=== PATIENT | female | born 1980 | race Caucasian/White ===

== ENCOUNTER 2016-12-10 04:11 | Emergency (ER) | payer SELFPAY ==
[2016-12-10] MEDS ORDERED: IPRATROPIUM/ALBUTEROL SULFATE 3 ML AMPUL.NEB NEB ONE (04:58)
--- NOTE | 2016-12-10 05:00 | ED Physician Documentation ---
General Adult - HISTORIAN Historian: patient - HPI Stated Complaint: cough, sore throat, difficulty breathing Chief Complaint: General Adult Additional Information: Cough, fever 10 102+, body aches, since 12/08. No flu shot this year. Temp 99.7 on arrival in ER. Pulse ox 90 and higher on ambient air. - ROS CONST: fever. denies: sweating CVS/RESP: cough - PAST HX Past History: asthma Allergies/Adverse Reactions: Allergies Allergy/AdvReac Type Severity Reaction Status Date / Time codeine [Codeine] Allergy Verified 12/10/16 04:21 diphenhydramine HCl Allergy Verified 12/10/16 04:21 [From Benadryl] Home Medications: Ambulatory Orders Medication Instructions Recorded Ferrous Gluconate [Iron] 1 tab PO D 12/10/16 Multivitamin [Tab-A-Serg] 1 tab PO D 12/10/16 - SOCIAL HX Smoking History: non-smoker - FAMILY HX Family History: No - VITAL SIGNS Vital Signs: Vital Signs Temp Pulse Resp BP Pulse Ox 99.7 F H 89 19 125/83 94 12/10/16 04:12 12/10/16 04:12 12/10/16 04:12 12/10/16 04:12 12/10/16 04:12 - REVIEWED ASSESSMENTS Nursing Assessment Reviewed: Yes Vitals Reviewed: Yes Progress - Progress Progress: Chest - two views Clinical history: Cough and fever. History of asthma. Findings: Examination of the chest in PA and lateral views with comparison to examination of 01/11/2014 demonstrates the lungs to be clear. Cardiovascular and mediastinal silhouettes are stable. Monitor leads superimpose the chest. Impression: 1. No active disease. Electronically signed on Dec 10, 2016 5:36:30 AM ORGANIC SECTION TECHNICAL LEAD by: Eugene Lay ED Results Lab/Radiology - Orders Orders: ED Orders Category Date Time Status GRP A STREP SCREEN Stat Lab 12/10/16 Ordered INFLUENZA A&B Stat Lab 12/10/16 Uncollected Ipratropium/Albuterol Sulfate [Duoneb] Med 12/10/16 04:58 Once 3 ml NEB NOW ONE General Adult Physical Exam - PHYSICAL EXAM GENERAL APPEARANCE: moderate distress EENT: eye inspection normal, ENT inspection normal, pharynx normal (Mallampati 4 ), MISAEL, TM's nml NECK: normal inspection, supple RESPIRATORY: no resp distress, breath sounds normal (but decreased throughout) CVS: reg rate & rhythm, heart sounds normal RECTAL: deferred BACK: normal inspection SKIN: warm/dry, normal color EXTREMITIES: no evidence of injury NEURO: CN's nml as tested, motor nml, sensation nml Discharge Clincal Impression: Influenza A Additional Instructions: Drink plenty of water. Treat any fever of 101 or higher with Tylenol or ibuprofen. Home Medications: Ambulatory Orders Ferrous Gluconate [Iron] 1 tab PO D 12/10/16 Multivitamin [Tab-A-Serg] 1 tab PO D 12/10/16 Condition: Fair Disposition: 01 HOME, SELF-CARE Decision to Admit: NO Decision Time: 06:11
[2016-12-10] MEDS ORDERED: ALBUTEROL SULFATE 2.5 MG/3 ML AMPUL.NEB NEB ONE ×3 (05:43→06:06)
--- NOTE | 2016-12-10 05:51 | Diagnostic Imaging Report ---
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 ~History of asthma. Findings: ~Examination of the chest in PA and lateral views with comparison to examination of 01/11/2014 demonstrates the lungs to be clear. ~Cardiovascular and mediastinal silhouettes are stable. ~Monitor leads superimpose the chest. Impression: 1. ~No active disease. ~ Electronically signed on Dec 10, 2016 5:36:30 AM BULK PLANT OPERATOR by: Eugene WESTBROOK
[2016-12-10 06:25] VITALS: BP 121/79
== END 2016-12-10 06:21 | disposition home or self-care (01) ==
LOC: ED 04:11
DX: J11.1 Influenza due to unidentified influenza virus with other respiratory manifestations (principal)
CPT/HCPCS: 71020; 87070; 87400; 87880; 94640; 99282; 99283

== ENCOUNTER 2018-01-29 07:59 | Outpatient (CLI) | payer OTHER ==
[2018-01-29 08:33] LABS: BASOPHILS % 0.3 (0.0-1.5); MEAN CORPUSCULAR HEMOGLOBIN 29.3 pg (28.0-34.0); MEAN CORPUSCULAR VOLUME 88.9 fl (80.0-100.0); MONOCYTES % 3.7 % (0.0-11.0); NEUTROPHILS # 6.5 # k/uL (1.4-7.7)
[2018-01-29 08:56] LABS: eGFR (African) > 60; eGFR (Non-African) > 60
[2018-01-29 20:11] LABS: IRON SERUM 57 ug/dL (37-145)
== END 2018-01-29 08:00 ==
LOC: LAB 07:59
PROVIDERS: ATTEND Physician Assistant
DX: E55.9 Vitamin D deficiency, unspecified (principal); Z86.39 Personal history of other endocrine, nutritional and metabolic disease; R63.5 Abnormal weight gain; R53.83 Other fatigue
CPT/HCPCS: 36415; 80053; 82306; 83540; 84443; 85025

== ENCOUNTER 2019-05-28 15:00 | Emergency (ER) | payer OTHER ==
--- NOTE | 2019-05-28 15:27 | ED Physician Documentation ---
Flank Pain - HISTORIAN Historian: patient - HPI Stated Complaint: right flank pain Chief Complaint: Flank Pain Additional Information: Patient presents to ED with a 3 week history of intermittent right flank pain, worsening today. Denies fever, chills, nausea or vomiting. Currently on menstral cycle. Onset: days ago (21) Duration: waxing, waning Timing: worse Context: denies: out of country travel, bad food Severity: moderate Quality: pain, cramping, sharp Associated Symptoms: denies: fever, chills, nausea, vomiting, diarrhea Exacerbated by: nothing Relieved by: upright position - ROS CONST: no problems GI/: denies: constipation, problems urinating CVS/RESP: denies: shortness of breath, hurts to breath EYES/ENT: none MS/SKIN/LYMPH: none NEURO/PSYCH: denies: headache - SOCIAL HX Smoking History: non-smoker Alcohol Use: none Drug Use: none - FAMILY HX Family History: none - PAST HX Past History: none Ischemic Bowel Risk Factors: none Surgeries/Procedures: cholecystectomy Medications: see nurse note - VITAL SIGNS Vital Signs: Vital Signs Temp Pulse Resp BP Pulse Ox 121/79 12/10/16 06:22 - REVIEWED ASSESSMENTS Nursing Assessment Reviewed: Yes Vitals Reviewed: Yes ED Results Lab/Radiology - Lab Results Lab Results: UA - +2 blood, nitrite negative, leukocytes negative. - Radiology Radiology Impressions: Report Submission Date: May 28, 2019 4:16:00 PM CDT Patient Study Name: SHONA SILVERIO Date: May 28, 2019 3:46:39 PM CDT Modality Type: CT\SR Gender: F Description: CT ABD/PELVIS W/O : 84 Institution: [facility] Physician: BLAINE GARZA Examination: CT Abdomen/pelvis History: RT FLANK PAIN, PT STATES X3 WEEKS, WORSENING. Comparison exams: None available Technique: CT Abdomen/pelvis without IV protocol. Findings: Liver, spleen, adrenals and pancreas are without gross irregularity given exam technique. Surgical clips gallbladder fossa. No suspicious renal calcifications. Ureters are nondilated in their course through the abdomen and pelvis. No central calcifications. Bladder margin within normal limits. Pelvic phleboliths. Abdominal aorta without aneurysm or peripheral atherosclerotic disease. Cardiac silhouette is not enlarged. No pericardial effusion. Bowel unopacified limiting evaluation. No abnormal dilation. Stool within the large bowel limiting sensitivity. No mesenteric inflammatory changes or free fluid. Appendix not visualized. Osseous structures appropriate for age. Lung bases without infiltrate. No effusion. Impression: No acute upper abdominal organ inflammatory process. No abnormal bowel dilation or inflammation. No suspicious renal calcifications or abnormal ureteric dilation. No lung base consolidation or effusion. Electronically signed on May 28, 2019 4:16:00 PM CDT by: Filemon Regan - Orders Orders: ED Orders Category Date Time Status Place IV Lock 1T Care 05/28/19 15:26 Ordered CBC/PLATELET/DIFF Routine Lab 05/28/19 Ordered CMP Routine Lab 05/28/19 Ordered UA W/MICRO IF INDICATED Routine Lab 05/28/19 15:26 Ordered Abdominal Pain Physical Exam - Physical Exam General Appearance: no acute distress, alert EENT: MISAEL NECK: supple RESPIRATORY: no resp distress, chest non-tender, breath sounds normal CVS: reg rate & rhythm, heart sounds normal ABDOMEN: soft, tenderness (RUQ) BACK: normal inspection, CVA tenderness (R) SKIN: warm/dry, normal color EXTREMITIES: non-tender, no edema NEURO: oriented X3, motor nml, sensation nml, mood/affect nml Vital Signs: Vital Signs Temp Pulse Resp BP Pulse Ox 121/79 12/10/16 06:22 Discharge Clincal Impression: Acute right flank pain Referrals: Primary Doctor,No [Primary Care Provider] - 2 Days Additional Instructions: 1. Tylenol and/or Ibuprofen as needed for pain 2. Apply ice and/or heat to affected area as needed for pain 3. Stay active. Exercise will help 4. Follow up with PCP within 1 week 5. Return to ER for new or worsening symptoms Condition: Stable Disposition: 01 HOME, SELF-CARE Decision to Admit: NO Date of Decison to Admit: 05/28/19 Decision Time: 16:22
[2019-05-28 15:29] VITALS: BP 138/100
[2019-05-28 15:50] LABS: BASOPHILS % 0.4 % (0.0-1.5); NEUTROPHILS # 5.2 # k/uL (1.4-7.7)
[2019-05-28 16:07] LABS: eGFR (Non-African) > 60
[2019-05-28 19:42] LABS: APPEARANCE,URINE CLEAR (CLEAR); COLOR,URINE AMBER (YELLOW)
[2019-05-28 19:43] LABS: OCCULT BLOOD,URINE 2+ (NEGATIVE); UROBILINOGEN URINE 0.2 Eu (0.2-1.0)
--- NOTE | 2019-05-29 07:25 | Diagnostic Imaging Report ---
BLAINE GARZA [facility] [id number] [facility] [address] [place], [place]. [address] Report Submission Date: May 28, 2019 4:16:00 PM CDT Patient Study Name: SHONA SILVERIO Date: May 28, 2019 3:46:39 PM CDT Modality Type: CT\SR Gender: F Description: CT ABD/PELVIS W/O : 84 Institution: [facility] Physician: BLAINE GARZA Examination: CT Abdomen/pelvis History: RT FLANK PAIN, PT STATES X3 WEEKS, WORSENING. Comparison exams: None available Technique: CT Abdomen/pelvis without IV protocol. Findings: Liver, spleen, adrenals and pancreas are without gross irregularity given exam technique. Surgical clips gallbladder fossa. No suspicious renal calcifications. Ureters are nondilated in their course through the abdomen and pelvis. No central calcifications. Bladder margin within normal limits. Pelvic phleboliths. Abdominal aorta without aneurysm or peripheral atherosclerotic disease. Cardiac silhouette is not enlarged. No pericardial effusion. Bowel unopacified limiting evaluation. No abnormal dilation. Stool within the large bowel limiting sensitivity. No mesenteric inflammatory changes or free fluid. Appendix not visualized. Osseous structures appropriate for age. Lung bases without infiltrate. No effusion. Impression: No acute upper abdominal organ inflammatory process. No abnormal bowel dilation or inflammation. No suspicious renal calcifications or abnormal ureteric dilation. No lung base consolidation or effusion. Electronically signed on May 28, 2019 4:16:00 PM CDT by: Filemon WESTBROOK
== END 2019-05-28 16:28 | disposition home or self-care (01) ==
LOC: ED 15:00
DX: R10.9 Unspecified abdominal pain (principal)
CPT/HCPCS: 74176; 80053; 81002; 85025; S1016